=== PATIENT | female | born 1965 | race Caucasian/White ===

== ENCOUNTER 2017-06-27 18:25 | Emergency (ER) | payer OTHER ==
[~2017-06-27] VITALS: Ht 165.1 cm; Wt 102.3 kg
[~2017-06-27 18:25] MED LIST: ALPR0.5T PO; DIPH50C PO; IBUP400T22 PO; METF500T7 PO; PARO20TA57 PO
[2017-06-27 18:41] VITALS: BP 131/89; PULSE 87; RESP 18; O2SAT 95
--- NOTE | 2017-06-27 19:32 | ED.REPORT ---
HPI-Headache Date of Service Jun 27, 2017 ED Provider: Doc,Ed MD Patient is a 51-year-old woman with diabetes, sleep apnea, hypothyroidism, chronic headaches, and pituitary adenoma who presents to the emergency department with worsening headache, generalized weakness, and dizziness 3 hours prior to arrival. Headache pain is usually 4/10 but today has increased to 7/ 10. She describes the headache pain as throbbing in her frontal area and occipital pain coming from her neck. She was out shopping and began to feel weak, wobbly, and shaky. She has associated lightheadedness, vertigo, and nausea. She has had no visual changes, shortness of breath, chest pain, or focalized weakness Nursing Notes Stated Complaint: HEADACHE,WOBBLY Chief Complaint: Headache Nursing Notes Reviewed: Yes Allergies: Coded Allergies: thimerosal (Verified Allergy, Intermediate, Rash,Itching,SOB, 06/27/17) latex (Verified Adverse Reaction, Severe, Rash, 06/27/17) Scheduled Diphenhydramine Hcl (Benadryl) 50 Mg Capsule 50 MG PO Q6H Metformin ER (Metformin ER) 500 Mg Tablet 500 MG PO DAILY Paroxetine (Paxil) 20 Mg Tablet 20 MG PO HS Scheduled PRN Alprazolam (Xanax) 0.5 Mg Tablet 0.5 MG PO TID PRN PRN For Anxiety Ibuprofen (Ibuprofen) 400 Mg Tablet 400 MG PO QID PRN PRN For Pain General Time Seen by MD: 19:32 Chief Complaint Headache Sudden in Onset?: No Past Medical History Past Medical History Notes: PCP: Nuvia Past Medical History hypothyroid diabetes mellitus sleep apnea Obesity Chronic headaches Pituitary adenoma Left TMJ dysfunction Reports: Hyperlipidemia, Hypertension Past Surgical History abdominal myomectomy Hysterectomy Family History Father at 34 from [place] Sister at 53 from stroke Smoking History Never Smoker Social History Lives with sister Alcohol Use: Denies alcohol use Drug Use: Denies drug use Other Social History: Local resident Ambulatory Status Independent Review of Systems A comprehensive review of systems was conducted with the patient and found to be negative except as above in the History of Present Illness. Physical Exam Initial Vital Signs Vital Signs (First) Date Time Temp Pulse Resp B/P Pulse Ox O2 Delivery O2 Flow Rate FiO2 06/27/17 18:41 37.1 87 18 131/89 95 Room Air Initial VS: Reviewed, Vital signs normal ENT: Mucous membranes moist, Conjunctiva normal, No scleral icterus Respiratory: Breath sounds normal, Clear to auscultation, No respiratory distress Cardiovascular: Regular rate & rhythm, Heart sounds normal, Intact distal pulses Abdomen / GI: Soft, Non-tender, No guarding, No rebound, No distention Back: No CVA tenderness Lymphatic: No lymphadenopathy Extremities: Vascular intact, Neuro intact, No swelling, No tenderness Skin: Warm, Dry, No cyanosis Psychiatric: Mood/affect normal, Behavior normal, Normal thought content General/Constitutional: Awake, Alert, No acute distress Head / Eyes: Atraumatic, Normocephalic, PERRL, EOMI, No nystagmus, Conjunctiva NL Pupils: Positive: Photophobia L, Photophobia R Neck: Atraumatic, Supple, No meningismus, Full range of motion, No swelling Neurologic: Oriented X3, Speech NL, No motor deficits, No sensory deficits, CN II - XII intact, Cerebellar NL Interpretation & Diagnostics Lab Results Interpretation Result Diagram: 06/27/176 06/27/17 2116 Test 06/27/17 21:16 06/27/17 23:06 White Blood Count 8.6th/mm3 (3.8-10.1) Red Blood Count 4.59mil/mm3 (3.90-5.20) Hemoglobin 12.5g/dL (12.0-15.6) Hematocrit 37.7% (35.0-46.0) Mean Corpuscular Volume 82.1fL (81-100) Mean Corpuscular Hemoglobin 27.2pg (27.0-35.0) Mean Corpuscular Hemoglobin Concent 33.2% (32.0-37.0) Red Cell Distribution Width 14.5% (12.3-15.4) Platelet Count 216bil/L (150-400) Neutrophils (%) (Auto) 52.2% (40-74) Lymphocytes (%) (Auto) 36.7% (14-46) Monocytes (%) (Auto) 7.9% (4-12) Eosinophils (%) (Auto) 2.8% (0-5) Basophils (%) (Auto) 0.2% (0-3) Sodium Level 140mEq/L (134-144) Potassium Level 3.7mEq/L (3.5-5.2) Chloride Level 107mEq/L (97-108) Carbon Dioxide Level 20mmol/L (18-29) Blood Urea Nitrogen 9mg/dL (6-24) Creatinine 0.71mg/dL (0.57-1.00) Estimat Glomerular Filtration Rate 124mL/min (>59) Glucose Level 125mg/dL (60-99) Calcium Level 8.9mg/dL (8.5-10.1) Thyroid Stimulating Hormone (TSH) 1.320uIU/mL (0.450-4.500) Free Thyroxine 1.35ng/dL (0.82-1.77) Urine Color Yellow (YELLOW) Urine Appearance Clear (CLEAR,HAZY) Urine pH 6.5 (5.0-8.0) Urine Specific [place] 1.020 (1.003-1.035) Urine Protein Negativemg/dL (NEG,TRACE) Urine Glucose (UA) Negativemg/dL (NEGATIVE) Urine Ketones Negativemg/dL (NEGATIVE) Urine Occult Blood Negative (NEGATIVE) Urine Nitrite Negative (NEGATIVE) Urine Bilirubin Negative (NEGATIVE) Urine Urobilinogen Normalmg/dL (NORMAL) Urine Leukocyte Esterase Negative (NEGATIVE) Urine RBC 0-2/hpf (0-2) Urine WBC 0-5/hpf (0-5) Urine Epithelial Cells Occasional/hpf (NONE-MOD) Urine Crystals None seen (NONE SEEN) Urine Bacteria None/hpf (NONE-FEW) Urine Hyaline Casts None/lpf (NONE) Urine Granular Casts None seen (NONE SEEN) Urine Waxy Casts None seen (NONE SEEN) Urine Red Blood Cell Casts None seen (NONE SEEN) Urine White Blood Cell Casts None seen (NONE SEEN) Urine Mucus None seen (None Seen) Urine Trichomonas None seen (NONE SEEN) Urine Yeast None (NONE SEEN) Urinalysis Comment None Urine Culture Reflexed Not indicated Lab Results Interpretation: CBC and CMP normal, urinalysis does not indicate infection CT Head Interpretation No acute intracranial disease process Interpretation / Wet Read by: Interpret - Radiologist Re-Eval/Medical Decision Med Decision/Clinical Course Patient is a 51-year-old woman with diabetes, sleep apnea, hypothyroidism, chronic headaches, and pituitary adenoma who presents to the emergency department with worsening headache, generalized weakness, and dizziness 3 hours prior to arrival. Laboratory evaluation is unremarkable, CT brain shows no acute intracranial process. Patient was medicated with Toradol, Compazine, Zofran, Benadryl, Decadron, and 1 L normal saline. Her symptoms improved, she requested discharge home. Due to the quality of her headache pain in so similar to her chronic headaches, negative meningeal signs on physical exam, normal laboratory evaluation, and negative CT scan of brain. I did not feel lumbar puncture was indicated. Urinalysis was performed due to symptoms of lightheadedness, and found to be negative. Culture was not indicated. Diagnosis and recommendations discussed with patient. Questions answered. Patient discharged home in stable condition with recommendation to follow up with primary care provider and precautions for returning to the emergency department given. Counseled Regarding: Diagnosis, Lab results, Need for follow-up, When/why to return to ED Discharge & Departure Impression: Primary Impression: Headache Headache type: tension-type Headache chronicity pattern: chronic headache Intractability: not intractable Qualified Code: G44.229 - Chronic tension- type headache, not intractable Additional Impression: Migraine Migraine type: unspecified Status migrainosus presence: without status migrainosus Intractability: not intractable Qualified Code: G43.909 - Migraine, unspecified, not intractable, without status migrainosus Disposition: Home Discharge Condition All VS Reviewed: Yes Condition: Improved Patient Instructions: Acute Headache (ED) Additional Instructions: Thank you for entrusting us with your care today. Your laboratory evaluation and clinical exam do not show evidence of infection, or brain bleed. If you have acute onset worst headache of your life please return to the emergency department. Contact your primary care provider or neurologist with new or worsening symptoms. I recommend follow-up with your primary care provider in the next week. It was a pleasure meeting you today. Referrals: Ciro Pedersen MD (PCP) Attending Statement I took a history performing exam. I concur with the assessment and plan. I did however explain to Mrs. Wayne that the only way to know for sure for subarachnoid hemorrhage or meningitis to perform a spinal tap. She had no interest in that whatsoever. She felt like this headache was normal for her. All things considered. She did agree to return if she has any neck stiffness, thunderclap headache or any new or worsening symptoms including fever. copies to: Ciro Pedersen MD, Todd P DO Jun 27, 2017 19:32 Meli Badillo DO Jun 27, 2017 20:44
[2017-06-27] MEDS ORDERED: 0.9% Sodium Chloride 1,000 ML IV ONE (20:21)
[2017-06-27] MEDS ORDERED: Ketorolac 15 mg/mL Inj IVPUSH ONE (20:25)
[2017-06-27] MEDS ORDERED: Dexamethasone 10 mg/mL Inj IVPUSH ONE (20:25)
[2017-06-27] MEDS ORDERED: Ondansetron 2 mg/mL 2 mL Inj IVPUSH ONE (20:25)
[2017-06-27] MEDS ORDERED: ProchlorPERazine 5 mg/mL 2 mL Inj IVPUSH ONE (20:25)
[2017-06-27 21:22] LABS: BASOPHILS % (AUTO) 0.2 % (0-3); EOSINOPHILS % (AUTO) 2.8 % (0-5); MONOCYTES % (AUTO) 7.9 % (4-12); Mean Corpuscular Hemoglobin 27.2 pg (27.0-35.0); Mean Corpuscular Volume 82.1 fL (81-100); NEUTROPHILS % (AUTO) 52.2 % (40-74); Platelet Count 216 bil/L (150-400)
--- NOTE | 2017-06-27 21:54 | DRSVH ---
PROCEDURE: CT BRAIN WITHOUT CONTRAST ([id number]) INDICATIONS: Headache pituitary adenoma TECHNIQUE: Noncontrast 4.5 mm thick angled axial sections acquired from the foramen magnum to the vertex, with c oronal reformats. COMPARISON: [facility], CT, CT BRAIN WO CON, 08/15/2016, 19:16. FINDINGS: Image quality: Excellent. CSF spaces: Basal cisterns are patent. No extra-axial fluid collections. Ventricles are normal in size and shape. Brain: No midline shift. No intracranial masses or hemorrhage. Rodriguez-white matter interface is norm al. Atherosclerotic calcifications noted in the internal carotid arteries bilaterally. No suprasella r mass is identified. Skull and face: Calvarium and visualized facial bones are intact, without suspicious lesions. Sinuses: Visualized sinuses and mastoids are clear. IMPRESSION: No acute intracranial disease process. Dictated by: Gabbie Lei MD, PhD on 06/27/2017 at 21:50 Approved by: Gabbie Lei MD, PhD on 06/27/2017 at 21:52
[2017-06-27 23:21] VITALS: BP 108/71; PULSE 81; RESP 18; O2SAT 93
[2017-06-27 23:24] LABS: APPEARANCE,URINE CLEAR (CLEAR,HAZY); COLOR,URINE YELLOW (YELLOW); OCCULT BLOOD,URINE NEGATIVE (NEGATIVE); PH,URINE 6.5 (5.0-8.0); UROBILINOGEN,URINE NORMAL (NORMAL)
== END 2017-06-27 23:00 | disposition home or self-care (01) ==
LOC: SED 18:25
DX: G43.909 Migraine, unspecified, not intractable, without status migrainosus (principal); E03.9 Hypothyroidism, unspecified; E11.9 Type 2 diabetes mellitus without complications; E78.5 Hyperlipidemia, unspecified; I10 Essential (primary) hypertension; G47.30 Sleep apnea, unspecified; Z86.39 Personal history of other endocrine, nutritional and metabolic disease; Z91.040 Latex allergy status; Z79.84 Long term (current) use of oral hypoglycemic drugs; Z88.8 Allergy status to other drugs, medicaments and biological substances
CPT/HCPCS: 36415; 70450; 80048; 81000; 81002; 82948; 84439; 84443; 85025; 96361; 96374; 96375; 99285; J0780; J1100; J1200; J1885; J2405; J7030